=== PATIENT | female | born 1965 | race Caucasian/White ===

== ENCOUNTER 2024-02-09 09:52 | Emergency (ER) | payer BC, SELFPAY ==
--- NOTE | 2024-02-09 10:01 | ED.LOWEXIN ---
HPI - Extremity Injury (Lower) General Chief Complaint: Extremity Injury, Lower Stated Complaint: Right Knee Injury Time Seen by Provider: 02/09/24 10:55 Source: patient and RN notes reviewed Mode of arrival: ambulatory Limitations: no limitations History of Present Illness HPI Narrative: 58-year-old female presents concern for right knee pain that started yesterday. She denies injury or trauma. 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 She denies taking any medication or other treatment for her knee. She denies any warmth, redness. Reports she felt like her ankle is slightly swollen. She reports pain with fully straightening the knee. She reports global knee pain MD complaint: other (Knee pain) Related Data Home Medications Medication Instructions Recorded Confirmed gabapentin 300 mg capsule 300 mg PO DAILY 02/09/24 02/09/24 levothyroxine 50 mcg tablet 50 mcg PO DAILY 02/09/24 02/09/24 lisinopril 20 20 - 25 tablet PO DAILY 02/09/24 02/09/24 mg-hydrochlorothiazide 25 mg tablet Allergies Allergy/AdvReac Type Severity Reaction Status Date / Time No Known Allergies Allergy Verified 02/09/24 10:13 Review of Systems Review of Systems: CONSTITUTIONAL: Denies malaise, chills, sweats, or fever. SKIN: Denies rash or itching, open skin, laceration, abrasion, redness, warmth MUSCULOSKELETAL: Reports right knee pain NEUROLOGIC: Denies numbness, weakness All systems reviewed & are unremarkable except as noted in HPI and below PMFSH Comments At time of signature, agree with nursing past medical, surgical, social and family history. There is no relevant family history pertinent to the presenting complaint Exam Narrative: GENERAL: Well-appearing, well-nourished, and in no acute distress. HEAD: Normocephalic, atraumatic. EYES: PERRLA, conjunctivae clear NECK: Supple. CHEST: Speaks in full sentences. No respiratory distress. HEART: Regular rate and rhythm. Normal and equal peripheral pulses. EXTREMITIES: Right knee, lower extremity has grossly normal strength and sensation, normal range of motion. No edema or ecchymosis. Normal sensation with sensitivity to light touch and pain. No point tenderness. No open wounds, no skin tenting, no devitalized tissue or atrophy, no trophic changes, no obvious deformity, alignment normal, nearby joints and structures intact. Distal pulses palpable and equal bilaterally, skin warm, dry, pink. Capillary refill less than 3 seconds. SKIN: Warm, dry, no rash. NEURO: Alert and oriented x3. PSYCH: Normal mood and affect Course Course Emergency Course: Patient is aware of diagnosis, understands and agrees to treatment plan. Anticipatory guidance given. Patient agrees to follow-up as directed and is aware of reasons to seek care at the emergency department. Portions of this record may have been created with voice recognition software Level of Care: Express Care Visit Vital Signs Vital signs: Vital Signs Temperature 97.6 F 02/09/24 10:07 Pulse Rate 70 02/09/24 10:07 Respiratory Rate 18 02/09/24 10:07 Blood Pressure 125/62 02/09/24 10:07 Pulse Oximetry 98 02/09/24 10:07 Oxygen Delivery Room Air 02/09/24 10:07 Temperature 97.6 F 02/09/24 10:07 Pulse Rate 70 02/09/24 10:07 Respiratory Rate 18 02/09/24 10:07 Blood Pressure 125/62 02/09/24 10:07 Pulse Oximetry 98 02/09/24 10:07 Oxygen Delivery Room Air 02/09/24 10:07 Reviewed. MDM - Extremity Injury (Lower) MDM Narrative Medical decision making narrative: Patients injury and pain is consistent with musculoskeletal etiology. No signs of neurological or vascular compromise on exam. Compartments and tissues are soft without signs of compartment syndrome. Pain is felt appropriate for further evaluation on an outpatient basis. Critical Care Time Critical Care Time Critical Care Time: No Discharge Plan Discharge Clinical Impression: Acut
[2024-02-09 10:07] VITALS: BP 125/62; PULSE 70; RESP 18; TEMP 36.4; O2SAT 98
== END 2024-02-09 11:10 | disposition home or self-care (01) ==
PROVIDERS: Emergency Provider Nurse Practitioner; PCP Internal Medicine
DX: M25.561 Pain in right knee (principal)
CPT/HCPCS: 99203; G0463